=== PATIENT | female | born 1955 | race Hispanic/Latino ===

== ENCOUNTER 2018-11-11 05:33 | Day surgery (SDC) | payer OTHER ==
[~2018-11-11] VITALS: Ht 160 cm; Wt 107.0 kg
[~2018-11-11 05:33] MED LIST: A20IH1 IH; ESCI10TA54 PO; FOLI1TAB15 PO; LEVO137T2 PO; LISI-613 PO; MONT10TA24 PO; PANT40TA25 PO; RIFA550T PO; SPIR25TA6 PO; TRAM50TA4 PO; TRAZ-185 PO
[2018-11-11] MEDS ORDERED: SODIUM CHLORIDE 0.9% 1000ML 1,000 ML IV ONE (06:04)
[2018-11-11 06:28] VITALS: BP 129/64
[2018-11-11] MEDS ORDERED: PROPOFOL 10 MG/ML 20ML VIAL IV ONE (07:08)
[2018-11-11 07:24] VITALS: BP 110/60
[2018-11-11 07:29] VITALS: BP 114/61
[2018-11-11 07:34] VITALS: BP 112/63
[2018-11-11 07:38] VITALS: BP 120/70
[2018-11-11 07:40] VITALS: BP 125/66
== END 2018-11-11 07:53 | disposition home or self-care (01) ==
LOC: ENDO 05:33 → DAH 05:33 → ENDO 07:53
PROVIDERS: ATTEND Internal Medicine Gastroenterology
DX: K31.7 Polyp of stomach and duodenum (principal); K29.50 Unspecified chronic gastritis without bleeding; K70.31 Alcoholic cirrhosis of liver with ascites; K76.6 Portal hypertension; K31.89 Other diseases of stomach and duodenum; K21.9 Gastro-esophageal reflux disease without esophagitis; J45.909 Unspecified asthma, uncomplicated; K57.30 Diverticulosis of large intestine without perforation or abscess without bleeding; I10 Essential (primary) hypertension; E03.9 Hypothyroidism, unspecified; D64.9 Anemia, unspecified; F41.9 Anxiety disorder, unspecified; F32.9 Major depressive disorder, single episode, unspecified; Z98.49 Cataract extraction status, unspecified eye; Z90.710 Acquired absence of both cervix and uterus; Z90.49 Acquired absence of other specified parts of digestive tract; Z87.891 Personal history of nicotine dependence; Z88.8 Allergy status to other drugs, medicaments and biological substances; Z91.040 Latex allergy status; Z91.09 Other allergy status, other than to drugs and biological substances
CPT/HCPCS: 43239; 43251; 88305; A4606; J2704; J7030

== ENCOUNTER → 2019-02-02 | Outpatient (CLI) | payer OTHER ==
[~2019-02-02] MED LIST changes: +ALBUMIN (HUMAN) 25% 200 ML IV SCH; -TRAM50TA4 PO
[2019-02-02 10:11] LABS: BASOPHILS % (AUTO) 0.5 % (0.0-5.0); EOSINOPHILS % (AUTO) 4.9 % (0.0-8.0); HEMATOCRIT 34.4 % (36-48); LYMPHOCYTES % (AUTO) 15.1 % (21.0-51.0); MEAN CORPUSCULAR HEMOGLOBIN 38.6 pg (27.0-33.0); MEAN CORPUSCULAR HGB CONC 35.3 g/dL (32.0-36.0); MEAN CORPUSCULAR VOLUME 109.3 fL (79-99); MONOCYTES % (AUTO) 11.2 % (3.0-13.0); NEUTROPHILS % (AUTO) 68.3 % (40.0-77.0); NUCLEATED RED BLOOD CELLS 0.1 % (0.0-0.19); PLATELET COUNT (AUTO) 38 K/uL (130-400); RED BLOOD CELL COUNT(AUTO) 3.15 MIL/uL (4.00-5.50); RED CELL DISTRIBUTION WIDTH 14.3 % (11.0-15.5); WHITE BLOOD COUNT (AUTO) 3.6 K/uL (4.8-10.8)
[2019-02-02 10:21] LABS: CREATININE 0.8 mg/dL (0.5-1.5); POTASSIUM 4.4 mmol/L (3.5-5.1)
[2019-02-02 10:26] LABS: ALBUMIN 2.8 g/dL (3.5-5.0); BILIRUBIN,TOTAL 4.6 mg/dL (0.2-1.0); TOTAL PROTEIN, SERUM 6.4 g/dL (6.0-8.3)
[2019-02-02 10:30] LABS: INR 1.61 (0.85-1.15); PARTIAL THROMBOPLASTIN TIME 31.7 SEC (26.3-35.5); PROTHROMBIN TIME 16.6 SEC (9.6-11.6)
--- NOTE | 2019-02-02 10:30 | NUR ---
U/S GD PARACENTESIS ORDERED. NOT DONE ULTRASOUND OF ALL 4 QUADRANTS OF ABDOMEN PERFORMED BY KATTY DINERO. DR. HERRERA VIEWED IMAGES AND NOTED PATIENT NOT TO HAVE ENOUGH FLUID TO SAFELY DO PROCEDURE. INFORMED PT OF RESULTS. PT DISCHARGED HOME AMBULATORY, STABLE, AAO X3 WITH NO C/O PAIN.
[2019-02-02 11:08] LABS: PLATELET MORPHOLOGY COMMENT MARKED DECREASE
== END | disposition home or self-care (01) ==
LOC: RAH 09:17
PROVIDERS: ATTEND Internal Medicine Gastroenterology
DX: K70.31 Alcoholic cirrhosis of liver with ascites (principal)
CPT/HCPCS: 36415; 76705; 80053; 85025; 85610; 85730; P9046